=== PATIENT | female | born 1990 | race Caucasian/White ===

== ENCOUNTER 2016-04-20 15:44 | Emergency (ER) | payer MEDICAID ==
[2014-03-28 01:45] VITALS: BMI 33.5
[~2016-04-20 15:44] MED LIST: COLACE100 MG PO; EPIFOAM10 GM TOPICAL; FERROUS SULFAT325 MG; IBUPROFEN600 MG PO; PERCOCET 5-3251 TAB PO
== END 2016-04-20 21:11 | disposition home or self-care (01) ==
LOC: D.ER 15:44
DX: J20.9 Acute bronchitis, unspecified (principal)

== ENCOUNTER 2016-05-25 16:16 | Emergency (ER) | payer MEDICAID ==
[2014-03-28 01:45] VITALS: BMI 33.5
== END 2016-05-25 19:25 | disposition left against medical advice (07) ==
LOC: D.ER 16:16
DX: R05 Cough (principal)

== ENCOUNTER → 2017-01-09 09:22 | Outpatient (CLI) | payer MEDICAID ==
[2014-03-28 01:45] VITALS: BMI 33.5
== END | disposition home or self-care (01) ==
LOC: D.RAD 01-07 10:00
DX: M25.551 Pain in right hip (principal); M54.5 Low back pain

== ENCOUNTER 2017-02-03 06:29 | Emergency (ER) | payer MEDICAID ==
[2014-03-28 01:45] VITALS: BMI 33.5
== END 2017-02-03 07:04 | disposition home or self-care (01) ==
LOC: D.ER 06:29
DX: S93.602A Unspecified sprain of left foot, initial encounter (principal); W22.8XXA Striking against or struck by other objects, initial encounter; Y93.89 Activity, other specified; Y92.029 Unspecified place in mobile home as the place of occurrence of the external cause